=== PATIENT | male | born 1990 | race Caucasian/White ===

== ENCOUNTER 2016-11-25 01:00 | Emergency (ER) | payer OTHER ==
--- NOTE | 2016-11-25 01:10 | ED Physician Documentation ---
Animal Bite - HISTORIAN Historian: patient - HPI Chief Complaint: Animal Bite Onset: just prior to arrival Where: home Animal: dog Appearance of Animal: appeared well Animal's Immunization Status: UTD Observation/ Capture of Animal: animal is known, can be observed Context of Attack: "unprovoked" attack Location of Injury: face (lip) Associated Symptoms: none Further Comments: yes - ROS CONST: none - PAST HX Past History: none Immunizations: denies: tetanus Allergies/Adverse Reactions: Allergies Allergy/AdvReac Type Severity Reaction Status Date / Time No Known Allergies Allergy Verified 11/25/16 01:13 Home Medications: Ambulatory Orders Medication Instructions Recorded Cephalexin [Keflex] 500 mg PO TID #21 capsule 11/25/16 - SOCIAL HX Smoking History: greater than 1 pack/day Alcohol Use: occasionally Drug Use: none - FAMILY HX Family History: no significant history - REVIEWED ASSESSMENTS Nursing Assessment Reviewed: Yes Vitals Reviewed: Yes Procedures Wound Location: face Wound Length: wound #1 0.8cm, #2 1cm, #3 1.8cm Wound's Depth, Shape: linear, irregular Wound Explored: clean Irrigated w/ Saline (ccs): 30 Betadine Prep?: No (dynahex) Anesthesia: 1% Lidocaine Volume of Anesthetic: 3ml Wound Debrided: none Wound Repaired With: sutures (#1 -3; #2 -3; #3 - 5) Suture Size/Type: 6:0 Layer Closure?: No Sterile Dressing Applied?: No Splint Applied?: No Progress - Progress Progress: I talked with ED at [facility] about mucosal laceration. Will let laceration heal by seconday intention. Animal Bite Physical Exam - Physical Exam General Appearance: no acute distress, alert Skin: other (see laceration) Neuro/Vascular/Tendon: no vascular compromise, oriented x3 Psych: mood/affect nml HEENT: other (lip laceration, also laceration to themucosal surface where gum and buccal mucosa meet ant, about 1.8cm long) Resp/CVS: chest non-tender, breath sounds nml, heart sounds nml, no resp. distress, lungs clear, reg. rate & rhythm Discharge Clincal Impression: Laceration of lower lip Referrals: Primary Doctor,No [Primary Care Provider] - 2 Days Additional Instructions: Rinse mouth with 1/2 strength peroxide. Watch for signs of infection. Have sutures removed in 6-7 days. # sutures to the lower left lip and mid smaller laceration. 5 sutures in mid larger laceration. Home Medications: Ambulatory Orders Cephalexin [Keflex] 500 mg PO TID #21 capsule 11/25/16 Condition: Stable Disposition: 01 HOME, SELF-CARE Decision to Admit: NO Date of Decison to Admit: 11/25/16 Decision Time: 02:17
[2016-11-25] MEDS ORDERED: Lidocaine 1% 5ml(IM or SUTURE)(PAIN CLINIC) IJ ONE (01:12)
[2016-11-25] MEDS ORDERED: CEPHALEXIN 250 MG CAPSULE PO ONE (01:13)
[2016-11-25] MEDS ORDERED: DIPH,PERTUSS(ACELL),TET VAC/PF 0.5 ML DISP.SYRIN IM ONE (01:14)
[2016-11-25] MEDS ORDERED: DIPH,PERTUSS(ACELL),TET VAC/PF 0.5 ML DISP.SYRIN IM SCH (02:00)
[2016-11-25 02:24] VITALS: BP 128/74
== END 2016-11-25 02:20 | disposition home or self-care (01) ==
LOC: ED 01:00
DX: S01.511A Laceration without foreign body of lip, initial encounter (principal); W54.0XXA Bitten by dog, initial encounter; Y93.9 Activity, unspecified; Y99.9 Unspecified external cause status
CPT/HCPCS: 12013; 90471; 90715; 99283